=== PATIENT | female | born 1955 ===

== ENCOUNTER 2025-08-05 03:01 | Emergency (ER) | payer MEDICARE, MEDICAID ==
[~2025-08-05] VITALS: Ht 152.4 cm; Wt 77.0 kg
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
[2025-08-05 03:49] VITALS: BP 208/101; PULSE 82; RESP 19; TEMP 97.8; O2SAT 98
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
== END 2025-08-05 04:54 | disposition home or self-care (01) ==
LOC: EDBD 03:01 → ER 03:01
DX: S20.211A Contusion of right front wall of thorax, initial encounter (principal); S80.11XA Contusion of right lower leg, initial encounter; I10 Essential (primary) hypertension; V89.2XXA Person injured in unspecified motor-vehicle accident, traffic, initial encounter; Y93.89 Activity, other specified; Y92.488 Other paved roadways as the place of occurrence of the external cause; Y99.8 Other external cause status
CPT/HCPCS: 71111; 73590